=== PATIENT | male | born 1940 | race Caucasian/White ===

== ENCOUNTER 2018-03-06 08:32 | Inpatient (IN) | payer MEDICARE, OTHER ==
[~2018-03-06] VITALS: Ht 182.9 cm; Wt 100.2 kg
[2018-03-06 09:31] LABS: BASOPHILS % (AUTO) 0.1 % (0-1); EOSINOPHILS % (AUTO) 0.4 % (0-6); HEMATOCRIT 50.2 % (42.0-52.0); HEMOGLOBIN 16.7 g/dl (14.0-17.9); LYMPHOCYTES % (AUTO) 8.9 % (21-51); MEAN CORPUSCULAR HEMOGLOBIN 27.6 PG (27.0-31.0); MEAN CORPUSCULAR HGB CONC 33.3 % (33.0-36.5); MEAN PLATELET VOLUME 8.4 FL (7.4-10.4); MONOCYTES # (AUTO) 0.7 X10'3 (0-0.9); MONOCYTES % (AUTO) 6.1 % (2-12); NEUTROPHILS # (AUTO) 9.1 X10'3 (1.8-7.7); NEUTROPHILS % (AUTO) 84.5 % (42-75); PLATELET COUNT 235 X10'3 (140-440); RED BLOOD COUNT 6.05 X10'6 (4.70-6.10); RED CELL DISTRIBUTION WIDTH 13.8 % (11.5-14.5); WHITE BLOOD COUNT 10.8 X10'3 (4.5-11.0)
[2018-03-06] MEDS ORDERED: normal saline 1000ML IV soln IVB ONE (09:50)
[2018-03-06] MEDS ORDERED: ketorolac tromethamine 15mg/ml inj. IV ONE (09:50)
[2018-03-06] MEDS ORDERED: ondansetron/PF 4mg/2ml inj IV ONE (09:50)
[2018-03-06 09:51] LABS: ALANINE AMINOTRANSFERASE 192 U/L (12-78); ALBUMIN 3.9 G/DL (3.4-5.0); ALKALINE PHOSPHATASE 179 IU/L (46-116); ANION GAP 12 (8-16); ASPARTATE AMINO TRANSFERASE 147 U/L (10-37); BILIRUBIN,TOTAL 4.3 MG/DL (0.1-1.0); BLOOD UREA NITROGEN 18 MG/DL (7-18); BUN/CREATININE RATIO 15.1 (5.4-32.0); CALCIUM 9.5 MG/DL (8.5-10.1); CHLORIDE 101 MMOL/L (99-107); CREATININE 1.19 MG/DL (0.60-1.10); GLUCOSE 108 MG/DL (70-104); POTASSIUM 4.4 MMOL/L (3.5-5.1); SODIUM 137 MMOL/L (135-145); TOTAL CARBON DIOXIDE 24.2 MMOL/L (24-32); eGFR 59 ML/MIN
[2018-03-06 10:02] LABS: ALBUMIN/GLOBULIN RATIO 1.1 (1.1-1.5); TOTAL PROTEIN 7.5 G/DL (6.4-8.2)
[2018-03-06 10:08] LABS: PROTHROMBIN TIME 10.3 SECONDS (9.0-12.0)
[2018-03-06 10:31] LABS: LIPASE 9099 U/L (73-393)
[2018-03-06] MEDS ORDERED: morphine 4 MG/ML inj SYRINge IV ONE (10:40)
[2018-03-06] MEDS ORDERED: CefTRIAXone 2gm/D5W 50ml 50 ML IV ONE (10:45)
[2018-03-06 10:53] LABS: CLARITY,URINE CLEAR (Clear); COLOR,URINE YELLOW (Yellow); GLUCOSE, URINE NEGATIVE (Neg); KETONES,URINE 40 mg/dl (Neg); LEUKOCYTE ESTERASE ,URINE NEGATIVE (Neg); NITRITES, URINE NEGATIVE (Neg); OCCULT BLOOD,URINE TRACE-LYSED (Neg); PROTEIN,URINE NEGATIVE (Neg); UROBILINOGEN,URINE 0.2 E.U/dL (0.2-1.0)
[2018-03-06] MEDS ORDERED: acetaminophen 325mg tablet PO PRN (10:55)
[2018-03-06] MEDS ORDERED: morphine 2 MG/ML inj. syringe IV PRN ×2 (10:55)
[2018-03-06] MEDS ORDERED: magnesium hydroxide 30ml (MOM) UD suspension PO PRN (10:55)
[2018-03-06] MEDS ORDERED: HYDROcodone/acetaminophen 5mg/325mg tablet PO PRN (10:55)
[2018-03-06] MEDS ORDERED: mag hydrox/Alum hydrox/simeth 30ml oral suspension PO PRN (10:55)
[2018-03-06] MEDS ORDERED: ondansetron/PF 4mg/2ml inj IV PRN (10:55)
[2018-03-06] MEDS ORDERED: HYDROcodone/acetaminophen 10/325mg tab PO PRN (10:55)
[2018-03-06 11:11] LABS: UA COLLECTION TYPE CLN CATCH MIDSTREAM
[2018-03-06 11:13] LABS: BACTERIA,URINE FEW /HPF (Neg); RBC,URINE 0-2 /HPF (0-2); SQUAMOUS EPITHELIAL CELL,UR FEW /LPF (FEW); WBC,URINE 0-4 /HPF (0-4)
[2018-03-06] MEDS: dextrose 5%-1/2 normal saline 1,000 ML IV SCH ×2 (11:48→21:27)
[2018-03-06] MEDS ORDERED: TEST200V10 IM (13:04)
[2018-03-06] MEDS ORDERED: AZIL80TA (13:04)
[2018-03-06] MEDS ORDERED: AMLO2.5T2 PO (13:04)
[2018-03-06] MEDS ORDERED: THYR30TA21 PO (14:00)
[2018-03-06] MEDS ORDERED: [UNRECOGNIZED DRUG - CODE] (14:00)
[2018-03-06] MEDS ORDERED: THYR90TA12 PO (14:00)
[2018-03-06] MEDS ORDERED: LACT1CAP65 PO (14:00)
[2018-03-06] MEDS ORDERED: VIT1TABL76 PO (14:00)
[2018-03-06] MEDS ORDERED: SAW/1TAB2 (14:00)
[2018-03-06] MEDS ORDERED: UBIQ100C3 PO (14:00)
[2018-03-06] MEDS ORDERED: morphine 4 MG/ML inj SYRINge IV PRN ×2 (17:29)
[2018-03-06] MEDS ORDERED: sevoflurane 250ml liquid IH ONE (17:38)
[2018-03-06 20:10] VITALS: BP 150/67
[2018-03-06] MEDS: lactobacillus rhamnosus 10,000 MMU CELLS/CAPSULE PO SCH (21:25)
[2018-03-07] VITALS (17 sets, daily range): BP systolic 132–175; BP diastolic 61–78
[2018-03-07] MEDS ORDERED: non-formulary drug (Lactobacillus Acidophilus (Probiotic) 1 CAP) PO SCH
[2018-03-07 06:02] LABS: BASOPHILS % (AUTO) 0.4 % (0-1); EOSINOPHILS # (AUTO) 0.4 X10'3 (0-0.9); HEMATOCRIT 44.5 % (42.0-52.0); HEMOGLOBIN 14.7 g/dl (14.0-17.9); LYMPHOCYTES # (AUTO) 1.5 X10'3 (1.1-4.8); LYMPHOCYTES % (AUTO) 19.4 % (21-51); MEAN CORPUSCULAR HEMOGLOBIN 27.3 PG (27.0-31.0); MEAN CORPUSCULAR HGB CONC 32.9 % (33.0-36.5); MEAN CORPUSCULAR VOLUME 82.9 FL (78-98); MONOCYTES # (AUTO) 0.8 X10'3 (0-0.9); MONOCYTES % (AUTO) 10.3 % (2-12); NEUTROPHILS % (AUTO) 64.9 % (42-75); PLATELET COUNT 201 X10'3 (140-440); RED BLOOD COUNT 5.37 X10'6 (4.70-6.10); RED CELL DISTRIBUTION WIDTH 14.1 % (11.5-14.5); WHITE BLOOD COUNT 7.7 X10'3 (4.5-11.0)
[2018-03-07] MEDS: dextrose 5%-1/2 normal saline 1,000 ML IV SCH ×2 (06:19→16:55)
[2018-03-07 06:22] LABS: ALANINE AMINOTRANSFERASE 126 U/L (12-78); ALBUMIN/GLOBULIN RATIO 0.9 (1.1-1.5); ALKALINE PHOSPHATASE 138 IU/L (46-116); ANION GAP 9 (8-16); ASPARTATE AMINO TRANSFERASE 55 U/L (10-37); BILIRUBIN,TOTAL 0.8 MG/DL (0.1-1.0); BLOOD UREA NITROGEN 16 MG/DL (7-18); BUN/CREATININE RATIO 14.2 (5.4-32.0); CALCIUM 8.3 MG/DL (8.5-10.1); CHLORIDE 107 MMOL/L (99-107); CREATININE 1.13 MG/DL (0.60-1.10); GLUCOSE 109 MG/DL (70-104); POTASSIUM 3.9 MMOL/L (3.5-5.1); SODIUM 141 MMOL/L (135-145); TOTAL CARBON DIOXIDE 24.6 MMOL/L (24-32); TOTAL PROTEIN 6.2 G/DL (6.4-8.2); eGFR 63 ML/MIN
[2018-03-07] MEDS: lactobacillus rhamnosus 10,000 MMU CELLS/CAPSULE PO SCH ×2 (08:00→19:15)
[2018-03-07] MEDS: enoxaparin 40mg/0.4ml syringe SUBCUT SCH (08:00)
[2018-03-07] MEDS ORDERED: meperidine/PF 100mg/ml syringe ONE (08:01)
[2018-03-07] MEDS ORDERED: MIDAZolam 5mg/5ml vial ONE (08:02)
[2018-03-07] MEDS ORDERED: glucagon, human recombinant 1mg kit ONE (08:02)
[2018-03-07] MEDS ORDERED: iohexol 300 MG/1 ML 50ml polymer ONE (08:02)
[2018-03-07] MEDS ORDERED: diphenhydrAMINE 50 mg/ml inj ONE (08:02)
[2018-03-07] MEDS ORDERED: fentaNYL/PF 50MCG/1 ML 2ML syringe ONE ×3 (08:02→18:02)
[2018-03-07] MEDS ORDERED: LIDOcaine Viscous 15ml cup ONE (08:02)
[2018-03-07] MEDS: amLODIPine 5mg tablet PO SCH (08:34)
[2018-03-07] MEDS: thyroid, pork 30mg tablet PO SCH (08:44)
[2018-03-07 09:54] LABS: LIPASE 954 U/L (73-393)
[2018-03-07] MEDS ORDERED: BUPIVAcaine/PF 2.5mg/ml (0.25%) 10ml vial ONE (16:40)
[2018-03-07] MEDS ORDERED: ceFAZolin 1000mg inj ONE ×2 (16:40→17:23)
[2018-03-07] MEDS ORDERED: rocuronium 10mg/ml inj IV ONE (17:17)
[2018-03-07] MEDS ORDERED: ondansetron/PF 4mg/2ml inj ONE (17:17)
[2018-03-07] MEDS ORDERED: dexamethasone sod phosphate 4mg/ml inj. ONE (17:17)
[2018-03-07] MEDS ORDERED: LIDOcaine 2% (20mg/ml) 5ml vial ONE (17:17)
[2018-03-07] MEDS ORDERED: propofol inj 20 ML IV ONE (17:17)
[2018-03-07] MEDS ORDERED: glycopyrrolate 0.2mg/ml inj ONE (17:18)
[2018-03-07] MEDS ORDERED: neostigmine methylsulfate 1 MG/ML 10ml vial ONE (17:18)
[2018-03-07] MEDS ORDERED: hydrALAZINE 20mg/ml inj. IV ONE (17:52)
[2018-03-08] VITALS: BP 149/68
[2018-03-08] MEDS: dextrose 5%-1/2 normal saline 1,000 ML IV SCH (02:59)
[2018-03-08 06:09] LABS: BASOPHILS % (AUTO) 0 % (0-1); EOSINOPHILS # (AUTO) 0.1 X10'3 (0-0.9); EOSINOPHILS % (AUTO) 0.6 % (0-6); HEMATOCRIT 44.4 % (42.0-52.0); HEMOGLOBIN 14.7 g/dl (14.0-17.9); LYMPHOCYTES # (AUTO) 0.8 X10'3 (1.1-4.8); LYMPHOCYTES % (AUTO) 7.9 % (21-51); MEAN CORPUSCULAR HEMOGLOBIN 27.7 PG (27.0-31.0); MEAN CORPUSCULAR HGB CONC 33.2 % (33.0-36.5); MEAN CORPUSCULAR VOLUME 83.6 FL (78-98); MEAN PLATELET VOLUME 8.9 FL (7.4-10.4); MONOCYTES # (AUTO) 0.3 X10'3 (0-0.9); MONOCYTES % (AUTO) 2.8 % (2-12); NEUTROPHILS # (AUTO) 9.3 X10'3 (1.8-7.7); NEUTROPHILS % (AUTO) 88.7 % (42-75); PLATELET COUNT 221 X10'3 (140-440); RED BLOOD COUNT 5.31 X10'6 (4.70-6.10); RED CELL DISTRIBUTION WIDTH 13.9 % (11.5-14.5); WHITE BLOOD COUNT 10.5 X10'3 (4.5-11.0)
[2018-03-08 06:32] LABS: ALANINE AMINOTRANSFERASE 100 U/L (12-78); ALBUMIN/GLOBULIN RATIO 0.9 (1.1-1.5); ALKALINE PHOSPHATASE 124 IU/L (46-116); ANION GAP 8 (8-16); ASPARTATE AMINO TRANSFERASE 42 U/L (10-37); BILIRUBIN,TOTAL 0.4 MG/DL (0.1-1.0); BLOOD UREA NITROGEN 16 MG/DL (7-18); BUN/CREATININE RATIO 14.2 (5.4-32.0); CALCIUM 8.4 MG/DL (8.5-10.1); CHLORIDE 106 MMOL/L (99-107); CREATININE 1.13 MG/DL (0.60-1.10); GLUCOSE 167 MG/DL (70-104); LIPASE 329 U/L (73-393); POTASSIUM 4.4 MMOL/L (3.5-5.1); SODIUM 138 MMOL/L (135-145); TOTAL CARBON DIOXIDE 24.2 MMOL/L (24-32); TOTAL PROTEIN 6.5 G/DL (6.4-8.2); eGFR 63 ML/MIN
[2018-03-08 07:00] VITALS: BP 150/72
[2018-03-08] MEDS: amLODIPine 5mg tablet PO SCH (07:55)
[2018-03-08] MEDS: lactobacillus rhamnosus 10,000 MMU CELLS/CAPSULE PO SCH (07:56)
[2018-03-08] MEDS: thyroid, pork 30mg tablet PO SCH (07:56)
[2018-03-08] MEDS: enoxaparin 40mg/0.4ml syringe SUBCUT SCH (07:57)
[2018-03-08] MEDS ORDERED: HYDR-3965 PO (11:30)
[2018-03-20] MEDS ORDERED: TESTOSTERONE CYPIONATE 200 MG/ML VIAL IM SCH (09:00)
== END 2018-03-08 12:53 | disposition home or self-care (01) | DRG 417 ==
LOC: ER 08:33 → ED HOLD 10:55 → EDBEDREQ 19:50 → SUR 3N 20:05
PROVIDERS: ADMIT Internal Medicine; ATTEND Internal Medicine
PROC: 0FT44ZZ Resection of Gallbladder, Percutaneous Endoscopic Approach (ICD-10-PCS; principal; 2018-03-07 17:10)
DX: K80.01 Calculus of gallbladder with acute cholecystitis with obstruction (principal); K85.10 Biliary acute pancreatitis without necrosis or infection; N17.9 Acute kidney failure, unspecified; I49.5 Sick sinus syndrome; Z90.79 Acquired absence of other genital organ(s); Z95.0 Presence of cardiac pacemaker; Z79.899 Other long term (current) drug therapy
CPT/HCPCS: 36415; 71045; 76700; 80053; 81001; 83690; 85025; 85610; 87070; 93005; 99285; A7000; G0378; J0360; J0690; J0696; J1100; J1200; J1610; J1650; J1885; J2001; J2175; J2250; J2270; J2405; J2704; J2710; J3010; J3490; J7120; Q9967